=== PATIENT | female | born 1980 | race Caucasian/White ===

== ENCOUNTER 2020-08-26 17:05 | Emergency (ER) | payer BC ==
--- NOTE | 2020-08-26 19:30 | EDM.PDOC ---
ED HPI GENERAL MEDICAL PROBLEM - General Chief Complaint: Respiratory Problem Stated Complaint: BODY PAIN/SORE THROAT/DIFFICULTY BREATHING Time Seen by Provider: 08/26/20 17:30 Source of Information: Reports: Patient History Limitations: Reports: No Limitations - History of Present Illness INITIAL COMMENTS - FREE TEXT/NARRATIVE: 40-year-old female presents the emergency department with complaints of body aches, sore throat, cough, shortness of breath, headache and decreased appetite. The patient states this started about 4 days ago with what she thought was just sinus congestion. It is progressed over the course the past 4 days to the point that she said her body aches are the worst symptom. She does have a history of asthma for which she takes Singulair, Symbicort and an albuterol inhaler. She denies any other past medical history. She states she just moved here from out of town and does not have a primary care provider in the area yet. She did not have her Covid vaccine this year. She still has her sense of taste and smell. She denies any nausea, vomiting or diarrhea. She denies any urinary symptoms. Generalized Pain Score (Numeric/FACES): 8 - Related Data Allergies Allergy/AdvReac Type Severity Reaction Status Date / Time sulfamethoxazole Allergy Swelling Verified 08/26/20 17:30 [From ] trimethoprim [From ] Allergy Swelling Verified 08/26/20 17:30 Home Meds: Home Meds . 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: Psychiatric History: Reports: Addiction, Anxiety, Depression, Mood Swings - Infectious Disease History Infectious Disease History: Reports: Chicken Pox - Past Surgical History GI Surgical History: Reports: Cholecystectomy Female Surgical History: Reports: Section Social & Family History - Tobacco Use Tobacco Use Status *Q: Former Tobacco User Years of Tobacco use: 25 Packs/Tins Daily: 1 Used Tobacco, but Quit: Yes Month/Year Tobacco Last Used: July 2020 - Caffeine Use Caffeine Use: Reports: Coffee, Energy Drinks, Soda, Tea - Recreational Drug Use Recreational Drug Use: Yes Drug Use in Last 12 Months: Yes Recreational Drug Type: Reports: Marijuana/Hashish Recreational Drug Use Frequency: Socially Recreational Drug Last Use: 2 weeks ago ED ROS GENERAL - Review of Systems Review Of Systems: Comprehensive ROS is negative, except as noted in HPI. ED EXAM, GENERAL - Physical Exam Exam: See Below Exam Limited By: No Limitations General Appearance: Alert, WD/WN, Mild Distress Ears: Normal External Exam, Hearing Grossly Normal Nose: Normal Inspection Throat/Mouth: Normal Inspection, Normal Lips, Normal Voice, No Airway Compromise Head: Atraumatic Neck: Normal Inspection, Supple Respiratory/Chest: No Respiratory Distress, Lungs Clear, Normal Breath Sounds, No Accessory Muscle Use, Chest Non-Tender Cardiovascular: Normal Peripheral Pulses, Regular Rate, Rhythm, No Edema, No Murmur Peripheral Pulses: 2+: Radial (L), Radial (R) GI/Abdominal: Normal Bowel Sounds, Soft, Non-Tender, No Distention (Female) Exam: Deferred Rectal (Female) Exam: Deferred Back Exam: Normal Inspection Extremities: Normal Inspection, Normal Range of Motion, Non-Tender, No Pedal Edema, Normal Capillary Refill Neurological: Alert, Oriented, Normal Cognition Psychiatric: Normal Affect, Normal Mood Skin Exam: Warm, Dry, Intact, Normal Color, No Rash Lymphatic: No Adenopathy #1 Interpretation EKG Date: 08/26/20 Time: 18:27 Rhythm: NSR Rate (Beats/Min): 78 [place]: Normal P-Wave: Present QRS: Normal ST-T: Depressed (Minimal in inferior leads) QT: Normal Comparison: NA - No Prior EKG EKG Interpretation Comments: Per Dr. Daigle interpretation: Sinus rhythm at 78 bpm, minimal ST depression in the inferior leads. Course - Vital Signs Text/Narrative:: Patient presents with 4-day history of cough, shortness of breath, headache, sore throat and body aches. As stated, the patient has not had her Covid vaccine this year and does have a history of asthma. I have ordered labs to include CBC, CMP, C-reactive protein, D-dimer, PT/INR, ferritin, lactic acid, LDH, EKG and a portable view of the chest. Patient also have a Covid swab. Last Recorded V/S: Last Vital Signs Temp 98.7 F 08/26/20 17:27 Pulse 87 08/26/20 17:27 Resp 16 08/26/20 17:27 BP 145/86 H 07/03/21 17:27 Pulse Ox 99 08/26/20 17:27 - Orders/Labs/Meds Orders: Active Orders 24 hr Category Date Time Status EKG Documentation Completion [RC] STAT Care 08/26/20 18:10 Active Nurse Communication: Isolation [RC] ASDIRECTED Care 08/26/20 18:10 Active Chest 1V Frontal [CR] Stat Exams 08/26/20 18:10 Taken Isolation [COMM] Stat Oth 08/26/20 18:09 Ordered Labs: Laboratory Tests 08/26/20 08/26/20 08/26/20 Range/Units 17:38 18:45 18:45 WBC (3.98-10.04) K/mm3 RBC (3.98-5.22) M/mm3 Hgb (11.2-15.7) gm/dl Hct (34.1-44.9) % MCV (79.4-94.8) fl MCH (25.6-32.2) pg MCHC (32.2-35.5) g/dl RDW Std Deviation (36.4-46.3) fL Plt Count (182-369) K/mm3 MPV (9.4-12.3) fl Neut % (Auto) (34.0-71.1) % Lymph % (Auto) (19.3-51.7) % Citrus % (Auto) (4.7-12.5) % Eos % (Auto) (0.7-5.8) Baso % (Auto) (0.1-1.2) % Neut # (Auto) (1.56-6.13) K/mm3 Lymph # (Auto) (1.18-3.74) K/mm3 Citrus # (Auto) (0.24-0.36) K/mm3 Eos # (Auto) (0.04-0.36) K/mm3 Baso # (Auto) (0.01-0.08) K/mm3 PT (9.7-12.0) SECONDS INR D-Dimer, Quantitative 0.20 (0.19-0.50) mg/L Sodium (136-145) mEq/L Potassium (3.5-5.1) mEq/L Chloride (98-107) mEq/L Carbon Dioxide (21-32) mEq/L Anion Gap (5-15) BUN (7-18) mg/dL Creatinine (0.55-1.02) mg/dL Est Cr Clr Drug Dosing mL/min Estimated GFR (MDRD) (>60) mL/min BUN/Creatinine Ratio (14-18) Glucose (70-99) mg/dL Lactic Acid (0.4-2.0) mmol/L Calcium (8.5-10.1) mg/dL Ferritin 53 (8-252) ng/ml Total Bilirubin (0.2-1.0) mg/dL AST (15-37) U/L ALT (14-59) U/L Alkaline Phosphatase (46-116) U/L Lactate Dehydrogenase (81-234) U/L C-Reactive Protein (<1.0) mg/dL Total Protein (6.4-8.2) g/dl Albumin (3.4-5.0) g/dl Globulin gm/dL Albumin/Globulin Ratio (1-2) SARS-CoV-2 RNA ([facility]IBETH) Negative (NEGATIVE) Group A Strep (PCR) (NOT DETECT) 08/26/20 08/26/20 08/26/20 Range/Units 18:45 18:45 18:45 WBC (3.98-10.04) K/mm3 RBC (3.98-5.22) M/mm3 Hgb (11.2-15.7) gm/dl Hct (34.1-44.9) % MCV (79.4-94.8) fl MCH (25.6-32.2) pg MCHC (32.2-35.5) g/dl RDW Std Deviation (36.4-46.3) fL Plt Count (182-369) K/mm3 MPV (9.4-12.3) fl Neut % (Auto) (34.0-71.1) % Lymph % (Auto) (19.3-51.7) % Citrus % (Auto) (4.7-12.5) % Eos % (Auto) (0.7-5.8) Baso % (Auto) (0.1-1.2) % Neut # (Auto) (1.56-6.13) K/mm3 Lymph # (Auto) (1.18-3.74) K/mm3 Citrus # (Auto) (0.24-0.36) K/mm3 Eos # (Auto) (0.04-0.36) K/mm3 Baso # (Auto) (0.01-0.08) K/mm3 PT 10.0 (9.7-12.0) SECONDS INR 0.93 D-Dimer, Quantitative (0.19-0.50) mg/L Sodium 141 (136-145) mEq/L Potassium 3.4 L (3.5-5.1) mEq/L Chloride 106 (98-107) mEq/L Carbon Dioxide 22 (21-32) mEq/L Anion Gap 16.4 H (5-15) BUN 13 (7-18) mg/dL Creatinine 1.0 (0.55-1.02) mg/dL Est Cr Clr Drug Dosing 64.58 mL/min Estimated GFR (MDRD) > 60 (>60) mL/min BUN/Creatinine Ratio 13.0 L (14-18) Glucose 111 H (70-99) mg/dL Lactic Acid 0.8 (0.4-2.0) mmol/L Calcium 8.5 (8.5-10.1) mg/dL Ferritin (8-252) ng/ml Total Bilirubin 0.3 (0.2-1.0) mg/dL AST 16 (15-37) U/L ALT 31 (14-59) U/L Alkaline Phosphatase 78 (46-116) U/L Lactate Dehydrogenase 163 (81-234) U/L C-Reactive Protein 2.7 H* (<1.0) mg/dL Total Protein 7.1 (6.4-8.2) g/dl Albumin 3.8 (3.4-5.0) g/dl Globulin 3.3 gm/dL Albumin/Globulin Ratio 1.2 (1-2) SARS-CoV-2 RNA (MARIBETH) (NEGATIVE) Group A Strep (PCR) (NOT DETECT) 08/26/20 08/26/20 Range/Units 18:45 19:37 WBC 6.93 (3.98-10.04) K/mm3 RBC 4.24 (3.98-5.22) M/mm3 Hgb 12.9 (11.2-15.7) gm/dl Hct 38.6 (34.1-44.9) % MCV 91.0 (79.4-94.8) fl MCH 30.4 (25.6-32.2) pg MCHC 33.4 (32.2-35.5) g/dl RDW Std Deviation 46.4 H (36.4-46.3) fL Plt Count 206 (182-369) K/mm3 MPV 9.1 L (9.4-12.3) fl Neut % (Auto) 61.0 (34.0-71.1) % Lymph % (Auto) 23.2 (19.3-51.7) % Citrus % (Auto) 13.1 H (4.7-12.5) % Eos % (Auto) 2.2 (0.7-5.8) Baso % (Auto) 0.4 (0.1-1.2) % Neut # (Auto) 4.22 (1.56-6.13) K/mm3 Lymph # (Auto) 1.61 (1.18-3.74) K/mm3 Citrus # (Auto) 0.91 H (0.24-0.36) K/mm3 Eos # (Auto) 0.15 (0.04-0.36) K/mm3 Baso # (Auto) 0.03 (0.01-0.08) K/mm3 PT (9.7-12.0) SECONDS INR D-Dimer, Quantitative (0.19-0.50) mg/L Sodium (136-145) mEq/L Potassium (3.5-5.1) mEq/L Chloride (98-107) mEq/L Carbon Dioxide (21-32) mEq/L Anion Gap (5-15) BUN (7-18) mg/dL Creatinine (0.55-1.02) mg/dL Est Cr Clr Drug Dosing mL/min Estimated GFR (MDRD) (>60) mL/min BUN/Creatinine Ratio (14-18) Glucose (70-99) mg/dL Lactic Acid (0.4-2.0) mmol/L Calcium (8.5-10.1) mg/dL Ferritin (8-252) ng/ml Total Bilirubin (0.2-1.0) mg/dL AST (15-37) U/L ALT (14-59) U/L Alkaline Phosphatase (46-116) U/L Lactate Dehydrogenase (81-234) U/L C-Reactive Protein (<1.0) mg/dL Total Protein (6.4-8.2) g/dl Albumin (3.4-5.0) g/dl Globulin gm/dL Albumin/Globulin Ratio (1-2) SARS-CoV-2 RNA ([facility]ETH) (NEGATIVE) Group A Strep (PCR) Not detected (NOT DETECT) - Re-Assessments/Exams Free Text/Narrative Re-Assessment/Exam: 08/26/20 20:12 Hematology reveals a WBC of 6.93, hemoglobin 12.9, hematocrit 38.6, platelet count 206 Coagulation reveals a pro time of 10.0, INR 0.93, D-dimer 0.20 Chemistry reveals a sodium of 141, potassium 3.4, chloride 106, anion gap 16.4, BUN 13, creatinine 1.0, glucose 111, lactic acid 0.8, ferritin 53, total bilirubin 0.3, AST 16, ALT 31, alk phos 78, LDH 163, C-reactive protein 2.7 Serology reveals that the patient is Covid negative Strep throat swab is pending. Portable view of the chest was reviewed by myself and Dr. Daigle and nothing acute is appreciated. Formal radiology report is pending. 08/26/20 20:16 Group A strep is not detected. Patient likely has a viral infection. She will be discharged home with recommendations that she get plenty or rest. Take Tylenol or ibuprofen for discomfort. Drink plenty of fluids. I will give her a list of the primary care providers at [facility] so that she can follow-up with them. 08/26/20 20:34 Discussed the results of the patient's labs and chest x-ray with the patient. Patient will be given a list of primary care providers at [facility] and she states she will follow up in a few days if she is not better. Departure - Departure Time of Disposition: 20:36 Disposition: Home, Self-Care 01 Condition: Good Clinical Impression: Cough, Viral infection - Discharge Information Instructions: Upper Respiratory Infection, Adult, [id number], Viral Illness, Adult Referrals: PCP,None [Primary Care Provider] - Forms: ED Department Discharge Additional Instructions: You were seen in the emergency department today and labs, EKG and a chest x-ray were completed. Covid screen and swab for strep throat was all also completed. Covid and strep throat were negative. Chest x-ray did not show any pneumonia or infective process. Labs were unremarkable as well as EKG I. It is likely you have a viral upper respiratory infection. Recommend that you drink plenty of fluids. May take Tylenol 650 mg alternating with ibuprofen 600 mg every 4 hours as needed. Recommend that you find a primary care provider in the area in the next few days if not better. A list is attached to your discharge packet. You likely will start to get better over the next few days. Sepsis Event Note (ED) - Evaluation Sepsis Screening Result: No Definite Risk - Focused Exam Vital Signs: Vital Signs Temp Pulse Resp BP Pulse Ox 08/26/20 17:27 98.7 F 87 16 145/86 H 99 - My Orders Last 24 Hours: My Active Orders 08/26/20 18:09 Isolation [COMM] Stat 08/26/20 18:10 EKG Documentation Completion [RC] STAT Nurse Communication: Isolation [RC] ASDIRECTED Chest 1V Frontal [CR] Stat - Assessment/Plan Last 24 Hours: My Active Orders 08/26/20 18:09 Isolation [COMM] Stat 08/26/20 18:10 EKG Documentation Completion [RC] STAT Nurse Communication: Isolation [RC] ASDIRECTED Chest 1V Frontal [CR] Stat
--- NOTE | 2020-08-27 12:37 | CR ---
Chest: Portable view of the chest was obtained. Comparison: No prior chest imaging is available. Heart size and mediastinum are normal. Lungs are clear with no acute parenchymal change. No acute osseous abnormality is appreciated. Impression: 1. Nothing acute is seen on portable chest x-ray. Diagnostic code #1
== END 2020-08-26 21:15 | disposition home or self-care (01) ==
LOC: JD.ED 17:05
DX: B34.9 Viral infection, unspecified (principal); Z20.822 Contact with and (suspected) exposure to COVID-19; Z88.1 Allergy status to other antibiotic agents; Z87.891 Personal history of nicotine dependence
CPT/HCPCS: 36415; 71045; 71045-26; 80053; 82728; 83605; 83615; 85025; 85379; 85610; 86140; 87651-QW; 93005; 93010; 99283; 99284-25; U0002

== ENCOUNTER 2022-01-28 18:09 | Emergency (ER) | payer MEDICAID ==
[2022-01-28] MEDS ORDERED: Ibuprofen 600 MG Tab PO ONE (20:07)
[2022-01-28 20:38] LABS: STREP A BY PCR NOT DETECTED (NOT DETECT)
[2022-01-28 20:49] LABS: CORONAVIRUS COVID-19 NAA NEGATIVE (NEGATIVE)
[2022-01-28] MEDS ORDERED: Doxycycline Monohydrate 100 MG Cap PO ONE (20:52)
== END 2022-01-28 22:04 | disposition home or self-care (01) ==
LOC: JD.ED 18:09 → UNDOADMIN 21:42 → JD.MS 21:42 → JD.ED 22:04
DX: J32.9 Chronic sinusitis, unspecified (principal); B96.89 Other specified bacterial agents as the cause of diseases classified elsewhere; J45.909 Unspecified asthma, uncomplicated; Z72.0 Tobacco use; Z88.2 Allergy status to sulfonamides; Z20.822 Contact with and (suspected) exposure to COVID-19
CPT/HCPCS: 0240U; 36415; 84443; 87651; 99283; A9270

== ENCOUNTER 2023-02-22 16:13 | Emergency (ER) | payer MEDICAID ==
[2023-02-22] MEDS ORDERED: Sodium Chloride 0.9% 10 ML Syringe FLUSH PRN (16:35)
[2023-02-22] MEDS ORDERED: Aspirin 81 MG Tab.Chew PO ONE (16:42)
[2023-02-22 16:53] LABS: BASOPHILS ABSOLUTE AUTO 0.1 K/mm3 (0.0-0.2); BASOPHILS PERCENT AUTO 0.6 % (0.0-1.0); EOSINOPHILS ABSOLUTE AUTO 0.2 K/mm3 (0.0-0.4); EOSINOPHILS PERCENT AUTO 1.9 % (0.0-6.0); HEMATOCRIT 41.8 % (37.0-47.0); HEMOGLOBIN 14.4 gm/dl (12.0-16.0); IMMATURE GRAN ABSOLUTE AUTO 0.02 K/mm3 (0.00-0.05); IMMATURE GRAN PERCENT AUTO 0.2 % (0.0-0.4); LYMPHOCYTES ABSOLUTE AUTO 3.5 K/mm3 (1.0-4.8); LYMPHOCYTES PERCENT AUTO 34.6 % (24.0-44.0); MEAN CORPUSCULAR HEMOGLOBIN 30.6 pg (28.0-32.0); MEAN CORPUSCULAR HGB CONC 34.4 g/dl (32.0-36.0); MEAN CORPUSCULAR VOLUME 88.7 fl (83.0-99.0); MEAN PLATELET VOLUME 9.3 fl (9.4-12.3); MONOCYTES ABSOLUTE AUTO 0.7 K/mm3 (0.0-0.8); MONOCYTES PERCENT AUTO 6.5 % (0.0-8.0); NEUTROPHILS ABSOLUTE AUTO 5.7 K/mm3 (1.8-7.7); NEUTROPHILS PERCENT AUTO 56.2 % (41.0-71.0); PLATELET COUNT,PLT 243 K/mm3 (150-400); RED BLOOD CELL COUNT 4.71 M/mm3 (4.10-5.30); WHITE BLOOD CELL COUNT,WBC 10.04 K/mm3 (3.9-11.3)
[2023-02-22 17:13] LABS: A/G RATIO 1.1 (1-2); ALBUMIN 4.1 g/dl (3.4-5.0); ANION GAP 13.5 (5-15); BILIRUBIN TOTAL 0.5 mg/dL (0.2-1.0); BUN/CREATININE RATIO 18.9 (14-18); CALCIUM 9.9 mg/dL (8.5-10.1); CREATININE 0.9 mg/dL (0.55-1.02); EST CRCL DRUG DOSING (CG) 70.32 mL/min; MAGNESIUM 1.9 mg/dL (1.8-2.4); POTASSIUM,K 3.5 mEq/L (3.5-5.1)
== END 2023-02-22 18:50 | disposition home or self-care (01) ==
LOC: JD.ED 16:13
DX: R07.89 Other chest pain (principal); R29.898 Other symptoms and signs involving the musculoskeletal system; J45.909 Unspecified asthma, uncomplicated; Z88.2 Allergy status to sulfonamides
CPT/HCPCS: 36415; 71046; 80053; 83735; 84484; 85025; 93005; 99285; A9270; J3490

== ENCOUNTER 2024-02-19 18:13 | Emergency (ER) | payer MEDICARE, MEDICAID ==
[2024-02-19 19:14] LABS: BASOPHILS PERCENT AUTO 0.3 % (0.0-1.0); EOSINOPHILS ABSOLUTE AUTO 0.1 K/mm3 (0.0-0.4); EOSINOPHILS PERCENT AUTO 0.5 % (0.0-6.0); HEMATOCRIT 38.5 % (37.0-47.0); HEMOGLOBIN 13.7 gm/dl (12.0-16.0); IMMATURE GRAN ABSOLUTE AUTO 0.04 K/mm3 (0.00-0.05); IMMATURE GRAN PERCENT AUTO 0.4 % (0.0-0.4); LYMPHOCYTES ABSOLUTE AUTO 3.1 K/mm3 (1.0-4.8); LYMPHOCYTES PERCENT AUTO 33.3 % (24.0-44.0); MEAN CORPUSCULAR HEMOGLOBIN 29.7 pg (28.0-32.0); MEAN CORPUSCULAR HGB CONC 35.6 g/dl (32.0-36.0); MEAN CORPUSCULAR VOLUME 83.3 fl (83.0-99.0); MEAN PLATELET VOLUME 9.1 fl (9.4-12.3); MONOCYTES ABSOLUTE AUTO 0.7 K/mm3 (0.0-0.8); MONOCYTES PERCENT AUTO 7.9 % (0.0-8.0); NEUTROPHILS ABSOLUTE AUTO 5.3 K/mm3 (1.8-7.7); NEUTROPHILS PERCENT AUTO 57.6 % (41.0-71.0); PLATELET COUNT,PLT 290 K/mm3 (150-400); RED BLOOD CELL COUNT 4.62 M/mm3 (4.10-5.30); WHITE BLOOD CELL COUNT,WBC 9.16 K/mm3 (3.9-11.3)
[2024-02-19 19:46] LABS: A/G RATIO 1.1 (1-2); ALANINE AMINOTRANSFERASE,ALT 31 U/L (14-59); ALKALINE PHOSPHATASE 76 U/L (46-116); ANION GAP 12.1 (5-15); ASPARTATE AMNIOTRANSFERASE,AST 13 U/L (15-37); BILIRUBIN TOTAL 0.3 mg/dL (0.2-1.0); BLOOD UREA NITROGEN,BUN 16 mg/dL (7-18); BUN/CREATININE RATIO 17.8 (14-18); C-REACTIVE PROTEIN <0.05 mg/dL (<0.30); CALCIUM 9.2 mg/dL (8.5-10.1); CARBON DIOXIDE,CO2 23 mEq/L (21-32); CHLORIDE,CL 105 mEq/L (98-107); CREATININE 0.9 mg/dL (0.55-1.02); ESTIMATED GFR 81 mL/min (>60); GLUCOSE RANDOM 110 mg/dL (70-99); LIPASE 64 U/L (16-77); POTASSIUM,K 3.1 mEq/L (3.5-5.1); PROTEIN TOTAL,TP 7.6 g/dl (6.4-8.2); SODIUM,NA 137 mEq/L (136-145)
[2024-02-19] MEDS: Aspirin 81 MG Tab.Chew PO ONE (19:55)
[2024-02-19 19:57] LABS: TROPONIN I HIGH SENSITIVITY < 4 pg/mL (<=51)
[2024-02-19] MEDS: Sodium Chloride 0.9% 1,000 ML IV ONE (20:21)
[2024-02-19] MEDS: Iopamidol 612 MG/ML 100 ML Bottle IVPUSH ONE (20:48)
[2024-02-19] MEDS: Alum Hydrox/Mag Hydrox/Simeth 30 ML, Lidocaine 2% 15 ML PO ONE (21:17)
[2024-02-19] MEDS: Famotidine 20 MG/2 ML SDV IVPUSH ONE (21:19)
== END 2024-02-19 21:40 | disposition home or self-care (01) ==
LOC: JD.ED 18:13
DX: R07.89 Other chest pain (principal); R10.84 Generalized abdominal pain; J45.909 Unspecified asthma, uncomplicated; E03.9 Hypothyroidism, unspecified; Z90.49 Acquired absence of other specified parts of digestive tract; Z88.8 Allergy status to other drugs, medicaments and biological substances; Z79.899 Other long term (current) drug therapy
CPT/HCPCS: 36415; 71045; 74177; 80053; 83690; 84484; 85025; 86140; 93005; 96361; 96374; 99285; A9270; J3490; J7030; Q9967